=== PATIENT | male | born 1965 | race African-American/Black ===

== ENCOUNTER 2018-04-18 20:02 | Inpatient (IN) | payer OTHER ==
[~2018-04-18] VITALS: Ht 193 cm; Wt 136.0 kg
[2018-04-18] MEDS ORDERED: DIVA500T35 PO (20:22)
[2018-04-18] MEDS ORDERED: AMIT50TA3 PO (20:22)
[2018-04-18] MEDS ORDERED: LEVE500T53 PO (20:22)
[2018-04-18] MEDS ORDERED: CITA-106 PO (20:22)
[2018-04-18] MEDS ORDERED: DICL50TA9 PO (20:22)
[2018-04-18] MEDS ORDERED: LISI-662 PO (20:22)
[2018-04-18] MEDS ORDERED: SODIUM CHLORIDE 0.9% 1,000 ML IV ONE (20:30)
[2018-04-18] MEDS ORDERED: LORazepam 2 MG/ML VIAL IVP ONE (20:30)
[2018-04-18 21:01] LABS: BASOPHILS % (AUTO) 0.4 % (0.0-2.0); EOSINOPHILS % (AUTO) 1.4 % (1.0-6.0); HEMATOCRIT 39.9 % (41-53); LYMPHOCYTES # (AUTO) 2.1 K/uL (1.0-4.8); LYMPHOCYTES % (AUTO) 25.8 % (22.0-44.0); MEAN CORPUSCULAR HEMOGLOBIN 34.5 pg (26.0-34.0); MEAN CORPUSCULAR VOLUME 98 fL (80-100); MONOCYTES # (AUTO) 0.9 K/uL (0.1-1.0); MONOCYTES % (AUTO) 11.4 % (2.0-9.0); PLATELET COUNT (AUTO) 240 K/uL (150-450); RED BLOOD CELL COUNT(AUTO) 4.06 MIL/uL (4.50-5.90); RED CELL DISTRIBUTION WIDTH 13.5 % (11.5-14.5)
[2018-04-18 21:05] LABS: ANION GAP 15 mmol/L (8-16); CALCIUM, TOTAL 9.9 mg/dL (8.8-10.5); CARBON DIOXIDE 23 mmol/L (22-29); CHLORIDE 99 mmol/L (98-107); CREATININE 3.25 mg/dL (0.60-1.30); GLOMERULAR FILTR. RATE CALC 24 mL/min (>60); GLUCOSE,RANDOM 95 mg/dL (70-110); POTASSIUM 4.4 mmol/L (3.5-5.1); SODIUM SERUM 137 mmol/L (136-145); UREA NITROGEN, BLOOD 34 mg/dL (7-18)
[2018-04-18 21:27] LABS: AMPHET/METH SCREEN,URINE POSITIVE (NEGATIVE); BARBITURATE SCREEN, URINE NEGATIVE (NEGATIVE); BENZODIAZEPINES SCREEN,URINE NEGATIVE (NEGATIVE); CANNABINOID SCREEN,URINE NEGATIVE (NEGATIVE); COCAINE SCREEN,URINE NEGATIVE (NEGATIVE); METHADONE SCREEN, URINE NEGATIVE (NEGATIVE); OPIATE SCREEN,URINE POSITIVE (NEGATIVE); PHENCYCLIDINE SCREEN,URINE NEGATIVE (NEGATIVE)
[2018-04-18 21:29] LABS: APPEARANCE,URINE CLOUDY (CLEAR); GLUCOSE, URINE (UA) NEGATIVE (NEGATIVE); KETONES,URINE TRACE mg/dL (NEGATIVE); LEUKOCYTE ESTERASE ,URINE NEGATIVE (NEGATIVE); NITRATE,URINE NEGATIVE (NEGATIVE); OCCULT BLOOD,URINE NEGATIVE (NEGATIVE); PROTEIN,URINE NEGATIVE (NEGATIVE)
[2018-04-18 21:34] LABS: BILIRUBIN,URINE PRELIM. POSITIVE (NEGATIVE)
[2018-04-18 21:40] LABS: BACTERIA,URINE Few /HPF (None Seen); RBC,URINE 0-2 /HPF (0-2); WBC,URINE 0-2 /HPF (0-5)
[2018-04-18 21:41] LABS: AMORPHOUS SEDIMENT,UR Few /LPF (None Seen); SQUAMOUS EPITHELIAL CELL,UR Rare /LPF (None Seen)
[2018-04-18 21:46] LABS: ALANINE AMINOTRANSFERASE 50 U/L (12-78); ALBUMIN 4.3 g/dL (3.4-5.0); ALKALINE PHOSPHATASE 48 U/L (46-116); ASPARTATE AMINOTRANSFERASE 68 U/L (15-37); BILIRUBIN,TOTAL 0.7 mg/dL (0.1-1.0); CKMB RELATIVE INDEX 2.4 % (0.0-4.0); CREATINE KINASE MB 19.1 ng/mL (0-5); CREATINE KINASE, TOTAL 798 U/L (39-308); TOTAL PROTEIN, SERUM 8.4 g/dL (6.4-8.2)
[2018-04-18 21:58] LABS: VALPROIC ACID 47 mcg/mL (50-100)
[2018-04-19] MEDS ORDERED: SODIUM CHLORIDE 0.9% 1,000 ML IV ONE
[2018-04-19] MEDS ORDERED: ACETAMINOPHEN 325 MG TABLET PO PRN (02:45)
[2018-04-19] MEDS ORDERED: 0.9% SODIUM CHLORIDE 10 ML SYRINGE IVP PRN ×2 (02:45→09:00)
[2018-04-19] MEDS ORDERED: ONDANSETRON HCL 4 MG/2 ML VIAL IVP PRN ×2 (02:45→09:00)
[2018-04-19] MEDS ORDERED: LORazepam 2 MG/ML VIAL IVP PRN (02:45)
[2018-04-19 04:48] VITALS: BP 142/78
[2018-04-19 07:39] VITALS: BP 106/59
[2018-04-19] MEDS ORDERED: LevETIRAcetam 500 MG TABLET PO SCH (09:00)
[2018-04-19] MEDS ORDERED: LISINOPRIL 20 MG TABLET PO SCH (09:00)
[2018-04-19] MEDS ORDERED: ZOLPIDEM TARTRATE 5 MG TABLET PO PRN (09:00)
[2018-04-19] MEDS: PANTOPRAZOLE SODIUM 40 MG/VIAL IVP SCH (09:45)
[2018-04-19] MEDS: DOCUSATE SODIUM 100 MG CAPSULE PO SCH ×2 (09:45→21:57)
[2018-04-19] MEDS: CITALOPRAM HYDROBROMIDE 20 MG TABLET PO SCH (09:45)
[2018-04-19] MEDS: DIVALPROEX SODIUM 500 MG DR TABLET PO SCH ×2 (10:30→21:58)
[2018-04-19] MEDS: DICLOFENAC SODIUM 50 MG DR TABLET PO SCH ×4 (10:30→21:59)
[2018-04-19] MEDS: AMITRIPTYLINE HCL 50 MG TABLET PO SCH (10:30)
[2018-04-19 11:50] VITALS: BP 97/64
[2018-04-19 15:57] VITALS: BP 102/54
[2018-04-19] MEDS: ACETAMINOPHEN 325 MG TABLET PO PRN (18:41)
[2018-04-19 19:51] VITALS: BP 99/55
[2018-04-19] MEDS: LevETIRAcetam 500 MG TABLET PO SCH (21:58)
[2018-04-20] VITALS (7 sets, daily range): BP systolic 98–152; BP diastolic 50–75
[2018-04-20] MEDS: ACETAMINOPHEN 325 MG TABLET PO PRN ×2 (04:19→20:17)
[2018-04-20 06:46] LABS: BASOPHILS % (AUTO) 0.6 % (0.0-2.0); EOSINOPHILS % (AUTO) 3.6 % (1.0-6.0); HEMATOCRIT 36.6 % (41-53); LYMPHOCYTES # (AUTO) 1.8 K/uL (1.0-4.8); LYMPHOCYTES % (AUTO) 37.4 % (22.0-44.0); MEAN CORPUSCULAR HEMOGLOBIN 35.2 pg (26.0-34.0); MEAN CORPUSCULAR HGB CONC 35.4 G/dL (31.0-37.0); MEAN CORPUSCULAR VOLUME 99 fL (80-100); MONOCYTES # (AUTO) 0.7 K/uL (0.1-1.0); MONOCYTES % (AUTO) 15.2 % (2.0-9.0); NEUTROPHILS # (AUTO) 2.1 K/uL (1.8-7.7); NEUTROPHILS % (AUTO) 43.2 % (40.0-70.0); PLATELET COUNT (AUTO) 199 K/uL (150-450); RED BLOOD CELL COUNT(AUTO) 3.69 MIL/uL (4.50-5.90); RED CELL DISTRIBUTION WIDTH 13.1 % (11.5-14.5)
[2018-04-20 07:06] LABS: CALCIUM, TOTAL 8.1 mg/dL (8.8-10.5); CREATININE 3.05 mg/dL (0.60-1.30); MAGNESIUM 2.5 mg/dL (1.80-2.40); POTASSIUM 4.3 mmol/L (3.5-5.1)
[2018-04-20] MEDS: DIVALPROEX SODIUM 500 MG DR TABLET PO SCH ×2 (08:21→20:16)
[2018-04-20] MEDS: CITALOPRAM HYDROBROMIDE 20 MG TABLET PO SCH (08:21)
[2018-04-20] MEDS: PANTOPRAZOLE SODIUM 40 MG/VIAL IVP SCH (08:21)
[2018-04-20] MEDS: DICLOFENAC SODIUM 50 MG DR TABLET PO SCH (08:22)
[2018-04-20] MEDS: DOCUSATE SODIUM 100 MG CAPSULE PO SCH ×2 (08:22→20:16)
[2018-04-20] MEDS: LevETIRAcetam 500 MG TABLET PO SCH ×2 (08:22→20:16)
[2018-04-20] MEDS: AMITRIPTYLINE HCL 50 MG TABLET PO SCH (08:22)
[2018-04-20 09:14] LABS: CKMB RELATIVE INDEX 2.5 % (0.0-4.0); CREATINE KINASE MB 14.5 ng/mL (0-5)
[2018-04-20] MEDS: SODIUM CHLORIDE 0.9% 1,000 ML IV SCH ×3 (10:00→21:21)
[2018-04-20 12:46] LABS: CREATININE,URINE RANDOM 169.4 mg/dL (30.0-125.0)
[2018-04-20 17:28] LABS: CREATININE 2.42 mg/dL (0.60-1.30)
[2018-04-21 05:21] VITALS: BP 122/74
[2018-04-21 07:01] LABS: CALCIUM, TOTAL 8.1 mg/dL (8.8-10.5); CREATININE 1.72 mg/dL (0.60-1.30); MAGNESIUM 2.7 mg/dL (1.80-2.40); PHOSPHORUS 2.6 mg/dL (2.5-4.9); POTASSIUM 5.1 mmol/L (3.5-5.1)
[2018-04-21 07:18] VITALS: BP 120/69
[2018-04-21] MEDS: SODIUM CHLORIDE 0.9% 1,000 ML IV SCH (07:50)
[2018-04-21] MEDS: PANTOPRAZOLE SODIUM 40 MG/VIAL IVP SCH (08:24)
[2018-04-21] MEDS: DIVALPROEX SODIUM 500 MG DR TABLET PO SCH (08:24)
[2018-04-21] MEDS: CITALOPRAM HYDROBROMIDE 20 MG TABLET PO SCH (08:24)
[2018-04-21] MEDS: AMITRIPTYLINE HCL 50 MG TABLET PO SCH (08:24)
[2018-04-21] MEDS: DOCUSATE SODIUM 100 MG CAPSULE PO SCH (08:25)
[2018-04-21] MEDS: LevETIRAcetam 500 MG TABLET PO SCH (08:25)
[2018-04-21 11:30] VITALS: BP 125/71
== END 2018-04-21 14:50 | disposition home or self-care (01) | DRG 53 ==
LOC: EMS 20:05 → 5N 04-19 03:27
PROVIDERS: ADMIT Internal Medicine; ATTEND Internal Medicine
DX: G40.909 Epilepsy, unspecified, not intractable, without status epilepticus (principal); N17.0 Acute kidney failure with tubular necrosis; G47.33 Obstructive sleep apnea (adult) (pediatric); M19.90 Unspecified osteoarthritis, unspecified site; I12.9 Hypertensive chronic kidney disease with stage 1 through stage 4 chronic kidney disease, or unspecified chronic kidney disease; F15.90 Other stimulant use, unspecified, uncomplicated; M54.9 Dorsalgia, unspecified; E66.9 Obesity, unspecified; N18.9 Chronic kidney disease, unspecified; Z79.899 Other long term (current) drug therapy; Z88.0 Allergy status to penicillin; Z88.6 Allergy status to analgesic agent; Z86.73 Personal history of transient ischemic attack (TIA), and cerebral infarction without residual deficits; Z82.49 Family history of ischemic heart disease and other diseases of the circulatory system; Z68.36 Body mass index [BMI] 36.0-36.9, adult
CPT/HCPCS: 51702; 70450; 76770; 82565; 82570; 83735; 84100; 84300; 84520; 84540; 93970; 96374; 99285; C9113; G0480; J2060; J2405; J7030

== ENCOUNTER 2018-05-11 15:10 | Emergency (ER) | payer OTHER ==
[~2018-05-11] VITALS: Ht 193 cm; Wt 136.4 kg
[~2018-05-11 15:10] MED LIST: AMIT50TA3 PO; CITA-106 PO; DIVA500T35 PO; LEVE500T53 PO; LISI-662 PO
[2018-05-11 16:02] VITALS: BP 128/75
[2018-05-11] MEDS ORDERED: RIZA10TA27 PO (16:09)
[2018-05-11] MEDS ORDERED: HYDR25TA PO (16:09)
[2018-05-11 16:20] LABS: BASOPHILS % (AUTO) 1.1 % (0.0-2.0); EOSINOPHILS % (AUTO) 2.3 % (1.0-6.0); HEMATOCRIT 38.7 % (41-53); HEMOGLOBIN 13.4 g/dL (13.5-17.5); LYMPHOCYTES # (AUTO) 2.4 K/uL (1.0-4.8); LYMPHOCYTES % (AUTO) 36.8 % (22.0-44.0); MEAN CORPUSCULAR HEMOGLOBIN 33.6 pg (26.0-34.0); MEAN CORPUSCULAR HGB CONC 34.6 G/dL (31.0-37.0); MEAN CORPUSCULAR VOLUME 97 fL (80-100); MONOCYTES # (AUTO) 0.9 K/uL (0.1-1.0); MONOCYTES % (AUTO) 13.3 % (2.0-9.0); NEUTROPHILS % (AUTO) 46.5 % (40.0-70.0); PLATELET COUNT (AUTO) 241 K/uL (150-450); RED BLOOD CELL COUNT(AUTO) 3.98 MIL/uL (4.50-5.90); RED CELL DISTRIBUTION WIDTH 13.4 % (11.5-14.5)
[2018-05-11 16:30] LABS: ANION GAP 12 mmol/L (8-16); CALCIUM, TOTAL 9.1 mg/dL (8.8-10.5); CARBON DIOXIDE 27 mmol/L (22-29); CHLORIDE 98 mmol/L (98-107); CREATININE 1.61 mg/dL (0.60-1.30); GLOMERULAR FILTR. RATE CALC 55 mL/min (>60); GLUCOSE,RANDOM 111 mg/dL (70-110); POTASSIUM 3.8 mmol/L (3.5-5.1); SODIUM SERUM 137 mmol/L (136-145); UREA NITROGEN, BLOOD 24 mg/dL (7-18)
[2018-05-11 16:40] LABS: ALANINE AMINOTRANSFERASE 52 U/L (12-78); ALBUMIN 3.9 g/dL (3.4-5.0); ALKALINE PHOSPHATASE 61 U/L (46-116); ASPARTATE AMINOTRANSFERASE 37 U/L (15-37); BILIRUBIN,TOTAL 0.4 mg/dL (0.1-1.0); TOTAL PROTEIN, SERUM 8.2 g/dL (6.4-8.2)
== END 2018-05-11 18:11 | disposition home or self-care (01) ==
LOC: EMS 15:11
DX: M62.830 Muscle spasm of back (principal); I10 Essential (primary) hypertension; G89.29 Other chronic pain; F17.210 Nicotine dependence, cigarettes, uncomplicated; M19.90 Unspecified osteoarthritis, unspecified site; F15.90 Other stimulant use, unspecified, uncomplicated; Z88.5 Allergy status to narcotic agent; Z88.0 Allergy status to penicillin
CPT/HCPCS: 36415; 71045; 80053; 84484; 85025; 93005; 99285; 99406; G0480

== ENCOUNTER → 2018-07-12 | Outpatient (CLI) | payer OTHER ==
[~2018-07-12] MED LIST changes: +DIVA-78 PO; -DIVA500T35 PO; +HYDR25TA PO; +RIZA10TA27 PO
== END | disposition home or self-care (01) ==
LOC: RADPV 08:41
PROVIDERS: ATTEND Internal Medicine Nephrology
DX: R22.43 Localized swelling, mass and lump, lower limb, bilateral (principal); I10 Essential (primary) hypertension
CPT/HCPCS: 93970